=== PATIENT | female | born 1965 | race Caucasian/White ===

== ENCOUNTER 2018-10-20 11:42 | Emergency (ER) | payer OTHER ==
[~2018-10-20] VITALS: Ht 154.9 cm; Wt 63.6 kg
[2018-10-20 11:44] VITALS: BP 138/56
[2018-10-20] MEDS ORDERED: BENZONATATE 100 MG CAPSULE PO ONE (13:00)
[2018-10-20] MEDS ORDERED: ALBUTEROL SULFATE HFA 90 MCG/PUFF 8 GM INHALER IH ONE (13:00)
== END 2018-10-20 13:26 | disposition home or self-care (01) ==
LOC: EMS 11:45
DX: J04.10 Acute tracheitis without obstruction (principal); J06.9 Acute upper respiratory infection, unspecified; F17.210 Nicotine dependence, cigarettes, uncomplicated; Z90.710 Acquired absence of both cervix and uterus
CPT/HCPCS: 99406; J3535